=== PATIENT | female | born 2000 | race Caucasian/White ===

== ENCOUNTER 2022-10-05 15:23 | Outpatient (CLI) | payer OTHER, SELFPAY | END 2022-10-05 15:24 | disposition home or self-care (01) | LOC: FRMREF 15:25 | PROVIDERS: PCP Physician Assistant Medical; Visit Provider Physician Assistant Medical | DX: Z00.00 Encounter for general adult medical examination without abnormal findings (principal); Z01.818 Encounter for other preprocedural examination | CPT/HCPCS: 80053 ==

== ENCOUNTER 2024-06-07 10:43 | Outpatient (CLI) | payer OTHER, SELFPAY ==
[2024-06-07 14:46] LABS: Chlamydia DNA Amplified* NOT DETECTED (No Detected); GC DNA Amplified* NOT DETECTED (No Detected)
== END 2024-06-07 10:44 | disposition home or self-care (01) ==
PROVIDERS: PCP Physician Assistant Medical; Visit Provider Nurse Practitioner Family
DX: Z13.1 Encounter for screening for diabetes mellitus (principal); Z13.6 Encounter for screening for cardiovascular disorders; Z11.3 Encounter for screening for infections with a predominantly sexual mode of transmission
CPT/HCPCS: 80061; 87491; 87591

== ENCOUNTER 2024-07-25 16:45 | Outpatient (RCR) | payer OTHER, SELFPAY | END 2024-11-22 23:59 | disposition home or self-care (01) | PROVIDERS: PCP Physician Assistant Medical; Visit Provider Orthopaedic Surgery Sports Medicine | DX: M54.50 Low back pain, unspecified (principal); S76.011D Strain of muscle, fascia and tendon of right hip, subsequent encounter; S76.012D Strain of muscle, fascia and tendon of left hip, subsequent encounter; Z51.89 Encounter for other specified aftercare | CPT/HCPCS: 97110; 97140; 97161 ==

== ENCOUNTER 2025-01-16 14:17 | Outpatient (CLI) | payer OTHER, SELFPAY | END 2025-01-16 14:18 | disposition home or self-care (01) | LOC: LKVREF 14:18 | PROVIDERS: PCP Nurse Practitioner Family; Visit Provider Advanced Practice Midwife | DX: O20.9 Hemorrhage in early pregnancy, unspecified (principal) | CPT/HCPCS: 84702 ==

== ENCOUNTER 2025-01-18 08:11 | Outpatient (CLI) | payer OTHER, SELFPAY | END 2025-01-18 08:12 | disposition home or self-care (01) | PROVIDERS: PCP Nurse Practitioner Family; Referring Provider Nurse Practitioner Family; Visit Provider Advanced Practice Midwife | DX: O20.9 Hemorrhage in early pregnancy, unspecified (principal) | CPT/HCPCS: 84702 ==

== ENCOUNTER 2025-01-19 19:05 | Emergency (ER) | payer OTHER, SELFPAY ==
--- OUTSIDE RECORDS SUMMARY | 2025-01-08 11:00 | XMS_ITS | Encounter Summary ---
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 Diagnoses Encounter for supervision of normal first in first trimester Procedures US OB <14 Weeks w Transvaginal Single Juanjo Palomino MD [address] [place] [address] Phone: tel: fax: Referral ID Status Reason Start Date Expiration Date V isits Requested Visits Authorized [id number] Pending Review 01/08/2025 01/08/2026 1 1 Reason for Visit * Reason Comments Care Nurse intake phone c all Encounter Details Date Type Department Care Team (Late st Contact Info) Description 01/08/2025 11:00 AM CDT Virtual Visit [facility] [address] [place] [id number] Encounter for supervision of normal first in first trimester (Primary Dx) Social History Tobacco Use Types Packs/Day Years Used Date Smoking Tobacco: Never Passive Smoke Exposure: Never Smokeless Tobacco: Never Tobacco Cessation:Counseling Given: No Alcohol Use Standard Drinks/Week Comments Not Currently 0 (1 standard drink = 0.6 oz pur e alcohol) PHQ-2 Answer Date Recorded PHQ-2 Score 0 01/08/2025 Estimated Date of Delivery Comme nts Yes 08/27/2025 Based on last me nstrual period of 11/20/2024 (Exact Date) Sex and Gender Information Value Date Recorded Sex Assigned at Not on file 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 Learning About Your Care Instructions Your health in the early weeks of your is particularly important for your baby's health. Take good care of yourself. Anything you do that harms your body can also harm your baby. Make sure to go to all of your doctor appointments. Regular checkups will help keep you and your baby healthy. How can you care for yourself at home? Diet Choose healthy foods like fruits, vegetables, whole grains, lean proteins, and healthy fats. Choose foods that are good sources of calcium, iron, and folate. You can try dairy products, dark leafy greens, fortified orange juice and cereals, almonds, broccoli, dried fruit, and beans. Do not skip meals or go for many hours without eating. If you are nauseated, try to eat a small, healthy snack every 2 to 3 hours. Avoid fish that are high in mercury. These include shark, swordfish, estuardo mackerel, marlin, orange roughy, and bigeye tuna, as well as tilefish from the [place]. It's okay to eat up to 8 to 12 ounces a week of fish that are low in mercury or up to 4 ounces a week of fish that have medium levels of mercury. Some fish that are low in mercury are salmon, shrimp,canned light tuna, cod, and tilapia. Some fish that have medium levels of mercury are halibut and white albacore tuna. Drink plenty of fluids. If you have kidney, heart, or liver disease and have to limit fluids, talk with your doctor before you increase the amount of fluids you drink. Limit caffeine to about 200 to 300 mg per day. On average, a cup of brewed coffee has around 80 to 100 mg of caffeine. Do not drink alcohol, such as beer, wine, or hard liquor. Take a multivitamin that contains at least 400 micrograms (mcg) of folic acid to help prevent birthdefects. Fortified cereal and whole wheat bread are good additional sources of folic acid. Increase the calcium in your diet. Try to drink a quart of skim milk each day. You may also take calcium supplements and choose foods such as cheese and yogurt. Lifestyle Make sure you go to your follow-up appointments. Get plenty of rest. You may be unusually tired while you are . Get at least 30 minutes of exercise on most days of the week. Walking is a good choice. If you havenot exercised in the past, start out slowly. Take several short walks each day. Do not smoke. If you need help quitting, talk to your doctor about stop-smoking programs. These canincrease your chances of quitting for good. Do not touch cat feces or litter boxes. Also, wash your hands after you handle raw meat, and fully cook all meat before you eat it. Wear gloves when you work in the yard or garden, and wash your hands well when you are done. Cat feces, raw or undercooked meat, and contaminated dirt can cause an infection that may harm your baby or lead to a miscarriage. Avoid things that can make your body too hot and may be harmful to your baby, such as a hot tub or sauna. Or talk with your doctor before doing anything that raises your body temperature. Your doctorcan tell you if it's safe. Avoid chemical fumes, paint fumes, or poisons. Do not use illegal drugs, marijuana, or alcohol. Medicines Review all of your medicines with your doctor. Some of your routine medicines may need to be changed to protect your baby. Use acetaminophen (Tylenol) to relieve minor problems, such as a mild headache or backache or a mild fever with cold symptoms. Do not use nonsteroidal anti- inflammatory drugs (NSAIDs), such as ibuprofen (Advil, Motrin) or naproxen (Aleve), unless your doctor says it is okay. Do not take two or more pain medicines at the same time unless the doctor told you to. Many pain medicines have acetaminophen, which is Tylenol. Too much acetaminophen (Tylenol) can be harmful. Take your medicines exactly as prescribed. Call your doctor if you think you are having a problem with your medicine. To manage morning sickness Keep food in your stomach, but not too much at once. Try eating five or six small meals a day instead of three large meals. For nausea when you wake up, eat a small snack, such as a couple of crackers or pretzels, before rising. Allow a few minutes for your stomach to settle before you slowly get up. Try to avoid smells and foods that make you feel nauseated. High-fat or greasy foods, milk, and coffee may make nausea worse. Some foods that may be easier to tolerate include cold, spicy, sour, and salty foods. Drink enough fluids. Water and other caffeine-free drinks are good choices. Take your vitamins at night on a full stomach. Try foods and drinks made with kady. Kady may help with nausea. Get lots of rest. Morning sickness may be worse when you are tired. Talk to your doctor about orws-sbs-ddsdmnr products, such as vitamin B6 or doxylamine, to help relieve symptoms. Try a P6 acupressure wrist band. These anti-nausea wristbands help some people. Follow-up care is a chao part of your treatment and safety. Be sure to make and go to all appointments, and call your doctor if you are having problems. It's also a good idea to know your test resultsand keep a list of the medicines you take. Where can you learn more? Go to https://www.healthwise.net/patiented Enter E868 in the search box to learn more about Learning About . Current as of: October 04, 2023 Content Version: 14.5 ?? 7415-9658 [employer]. Care instructions adapted under license by your healthcare professional. If you have questions about a medical condition or this instruction, always ask your healthcare professional. [employer] disclaims any warranty or liability for your use of this information. Weeks 6 to 10 of Your : Care Instructions During these weeks of , your body goes through many changes. You may start to feel different, both in your body and your emotions. Each is different, so there's no right way to feel. These early weeks are a time to make healthy choices for you and your . Take a daily vitamin. Choose one with folic acid in it. Avoid alcohol, tobacco, and drugs (including marijuana). If you need help quitting, talk to your doctor. Drink plenty of liquids. Be sure to drink enough water. And limit sodas, other sweetened drinks, and caffeine. Choose foods that are good sources of calcium, iron, and folate. You can try dairy products, dark leafy greens, fortified orange juice and cereals, almonds, broccoli, dried fruit, and beans. Avoid foods that may be harmful. Don't eat raw meat, deli meat, raw seafood, or raw eggs. Avoid soft cheese and unpasteurized dairy, like Brie and blue cheese. And don't eat fish that contains a lot of mercury, like shark and swordfish. Don't touch ananda litter or cat poop. They can cause an infection that could be harmful during . Avoid things that can make your body too hot. For example, avoid hot tubs and saunas. Soothe morning sickness. Try eating 5 or 6 small meals a day, getting some fresh air, or using kady to control symptoms. Ask your doctor about flu and COVID-19 shots. Getting them can help protect against infection. Follow-up care is a chao part of your treatment and safety. Be sure to make and go to all appointments, and call your doctor if you are having problems. It's also a good idea to know your test resultsand keep a list of the medicines you take. Where can you learn more? Go to https://www.Story of My Life.net/patiented Enter G112 in the search box to learn more about Weeks 6 to 10 of Your : Care Instructions. Current as of: October 04, 2023 Content Version: 14.5 ?? [employer]. Care instructions adapted under license by your healthcare professional. If you have questions about a medical condition or this instruction, always ask your healthcare professional. [employer] disclaims any warranty or liability for your use of this information. : Managing Morning Sickness (01:48) Your health professional recommends that you watch this short online health video. Learn how to manage morning sickness during . Purpose: Learn how to manage morning sickness during . Goal: Learn how to manage morning sickness during . Watch: Scan the QR code or visit the link to view video https://hwi.[email or web address] Current as of: October 04, 2023 Content Version: 14.5 ?? [employer]. Care instructions adapted under license by your healthcare professional. If you have questions about a medical condition or this instruction, always ask your healthcare professional. [employer] disclaims any warranty or liability for your use of this information. and Heartburn: Care Instructions Overview Heartburn is a common problem during . Heartburn happens when stomach acid backs up into the tube that carries food to the stomach. This tube is called the esophagus. Early in , heartburn is caused by hormone changes that slow down digestion. Later on, it's also caused by the large uterus pushing up on the stomach. Even though you can't fix the cause, there are things you can do to get relief. Treating heartburn during focuses first on making lifestyle changes, like changing what and how you eat, and on taking medicines. Heartburn usually improves or goes away after childbirth. Follow-up care is a chao part of your treatment and safety. Be sure to make and go to all appointments, and call your doctor if you are having problems. It's also a good idea to know your test resultsand keep a list of the medicines you take. How can you care for yourself at home? Eat small, frequent meals. Avoid foods that make your symptoms worse, such as chocolate, peppermint, and spicy foods. Avoid drinks with caffeine, such as coffee, tea, and sodas. Avoid bending over or lying down after meals. Take a short walk after you eat. If heartburn is a problem at night, do not eat for 2 hours before bedtime. Take antacids like Mylanta, Maalox, Rolaids, or Tums. Do not take antacids that have sodium bicarbonate, magnesium trisilicate, or aspirin. Be careful when you take mgct-wuf-xyprmrc antacid medicines. Many of these medicines have aspirin in them. While you are , do not take aspirin or medicines that contain aspirin unless your doctor says it is okay. If you're not getting relief, talk to your doctor. You may be able to take a stronger acid-reducingmedicine. When should you call for help? Call your doctor now or seek immediate medical care if: You have new or worse belly pain. You are vomiting. Watch closely for changes in your health, and be sure to contact your doctor if: You have new or worse symptoms of reflux. You are losing weight. You have trouble or pain swallowing. You do not get better as expected. Where can you learn more? Go to https://www.Story of My Life.net/patiented Enter U946 in the search box to learn more about and Heartburn: Care Instructions. Current as of: October 04, 2023 Content Version: 14.5 ?? [employer]. Care instructions adapted under license by your healthcare professional. If you have questions about a medical condition or this instruction, always ask your healthcare professional. [employer] disclaims any warranty or liability for your use of this information. Constipation: Care Instructions Overview Constipation means that you have a hard time passing stools (bowel movements). People pass stools from 3 times a day to once every 3 days. What is normal for you may be different. Constipation may occur with pain in the rectum and cramping. The pain may get worse when you try to pass stools. Sometimes there are small amounts of bright red blood on toilet paper or the surface of stools. This is because of enlarged veins near the rectum (hemorrhoids). A few changes in your diet and lifestyle may help you avoid ongoing constipation. Your doctor may also prescribe medicine to help loosen your stool. Some medicines can cause constipation. These include pain medicines and antidepressants. Tell your doctor about all the medicines you take. Your doctor may want to make a medicine change to ease yoursymptoms. Follow-up care is a chao part of your treatment and safety. Be sure to make and go to all appointments, and call your doctor if you are having problems. It's also a good idea to know your test resultsand keep a list of the medicines you take. How can you care for yourself at home? Drink plenty of fluids. If you have kidney, heart, or liver disease and have to limit fluids, talk with your doctor before you increase the amount of fluids you drink. Include high-fiber foods in your diet each day. These include fruits, vegetables, beans, and whole grains. Get at least 30 minutes of exercise on most days of the week. Walking is a good choice. You also may want to do other activities, such as running, swimming, cycling, or playing tennis or team sports. Take a fiber supplement, such as Citrucel or Metamucil, every day. Read and follow all instructionson the label. Schedule time each day for a bowel movement. A daily routine may help. Take your time having a bowel movement, but don't sit for more than 10 minutes at a time. And don't strain too much. Support your feet with a small step stool when you sit on the toilet. This helps flex your hips andplaces your pelvis in a squatting position. Your doctor may recommend an wcor-ttm-btdswpr laxative to relieve your constipation. Examples are Milk of Magnesia and MiraLax. Read and follow all instructions on the label. Do not use laxatives on a long-term basis. When should you call for help? Call your doctor now or seek immediate medical care if: You have new or worse belly pain. You have new or worse nausea or vomiting. You have blood in your stools. Watch closely for changes in your health, and be sure to contact your doctor if: Your constipation is getting worse. You do not get better as expected. Where can you learn more? Go to https://www.Story of My Life.net/patiented Enter P343 in the search box to learn more about Constipation: Care Instructions. Current as of: March 24, 2024 Content Version: 14.5 ?? [facility] [employer]. Care instructions adapted under license by your healthcare professional. If you have questions about a medical condition or this instruction, always ask your healthcare professional. [employer] disclaims any warranty or liability for your use of this information. Learning About High-Iron Foods What foods are high in iron? The foods you eat contain nutrients, such as vitamins and minerals. Iron is a nutrient. Your body needs the right amount to stay healthy and work as it should. You can use the list below to help you make choices about which foods to eat. Here are some foods that contain iron. They have 1 to 2 milligrams of iron per serving. Fruits Figs (dried), 5 figs Vegetables Asparagus (canned), 6 gomez Ines, beet, [place] chard, or turnip greens, 1 cup Dried peas, cooked, ?? cup Seaweed, spirulina (dried), ?? cup Spinach, (cooked) ?? cup or (raw) 1 cup Grains Cereals, fortified with iron, 1 cup Grits (instant, cooked), fortified with iron, ?? cup Meats and other protein foods Beans (kidney, henriquez, navy, white), canned or cooked, ?? cup Beef or mnosalve, 3 oz Chicken giblets, 3 oz Chickpeas (garbanzo beans), ?? cup Liver of beef, monsalve, or pork, 3 oz Oysters (cooked), 3 oz Sardines (canned), 3 oz Soybeans (boiled), ?? cup Tofu (firm), ?? cup Work with your doctor to find out how much of this nutrient you need. Depending on your health, youmay need more or less of it in your diet. Where can you learn more? Go to https://www.Story of My Life.net/patiented Enter R005 in the search box to learn more about Learning About High-Iron Foods. Current as of: March 12, 2024 Content Version: 14.5 ?? [employer]. Care instructions adapted under license by your healthcare professional. If you have questions about a medical condition or this instruction, always ask your healthcare professional. [employer] disclaims any warranty or liability for your use of this information. Learning About Ultrasound Results What is a ultrasound? ultrasound is a test that lets your doctor see an image of your baby. Your doctor learns information about your baby from this picture. You may find out, for example, if you are having a boy ora girl. But the main reason you have this test is to get information about your baby's health. (You may hear your baby called a fetus. This is a common medical term for a baby that's growing in the mother's uterus.) What kind of information can you learn from this test? The findings of an ultrasound fall into two categories, normal and abnormal. Normal The fetus is the right size for its age. The placenta is the expected size and does not cover the cervix. There is enough amniotic fluid in the uterus. No defects can be seen. Abnormal The fetus is small or large for its age. The placenta covers the cervix. There is too much or too little amniotic fluid in the uterus. The fetus may have a defect. What does an abnormal result mean? Abnormal seems to imply that something is wrong with your baby. But what it means is that the test has shown something the doctor wants to take a closer look at. And that's what happens next. Your doctor will talk to you about what further test or tests you mayneed. What do the results mean? Some of the things your doctor may see on an abnormal ultrasound include: Echogenic bowel. The bowel looks very bright on the screen. This could mean that there's blood in the bowel. Or it could mean that something is blocking the small bowel. Increased nuchal translucency. The ultrasound measures the thickness at the back of the baby's neck. An increase in thickness is sometimes an early sign of Down syndrome. Increased or decreased amniotic fluid. The doctor will look for a reason for the level of amniotic fluid and will watch the closely as it progresses. Large ventricles. Ventricles in the brain look larger than they should. Your doctor may take a closer look at the brain. Renal pyelectasis/hydronephrosis. The ultrasound measures the fluid around the kidney. If there is more fluid than expected, there barrie chance of urinary tract or kidney problems. Short long bones. The ultrasound measures certain arm and leg bones. A long bone (humerus or femur) that is shorter than average could be a sign of Down syndrome. Subchorionic hemorrhage. An ultrasound can show bleeding under one of the membranes that surrounds the fetus. Some women don't have symptoms of bleeding. The ultrasound can find this problem when women are not bleeding from their vagina. Women who have this condition have a slightly higher chance of miscarriage. What do you do now? Take a deep breath, and let it out. Keep in mind that an abnormal finding on an ultrasound, after it's coupled with more information, may: youth services librarian to be nothing. youth services librarian to be something mild that won't affect the baby. youth services librarian to be something more serious. But if this happens, early diagnosis helps you and your doctor plan treatment options sooner rather than later. Your medical team is there for you. So are your family and friends. Ask questions, and get the helpand support you need. Follow-up care is a chao part of your treatment and safety. Be sure to make and go to all appointments, and call your doctor if you are having problems. It's also a good idea to know your test resultsand keep a list of the medicines you take. Where can you learn more? Go to https://www.Story of My Life.AvePoint/patiented Enter K451 in the search box to learn more about Learning About Ultrasound Results. Current as of: October 04, 2023 Content Version: 14.5 ?? 9828-5689 [employer]. Care instructions adapted under license by your healthcare professional. If you have questions about a medical condition or this instruction, always ask your healthcare professional. [employer] disclaims any warranty or liability for your use of this information. Learning About Visits Overview Regular visits are very important during any . These quick office visits may seemsimple and routine. But they can help you have a safe and healthy . Your doctor is watching for problems that can only be found through regular checkups. The visits also give you and your doctor time to build a good relationship. After your first visit, you will most likely start on a schedule of monthly visits. In your third trimester, the visits will get more frequent. Based on your health, your age, and if you've had a normal, full-term before, your doctor may want to see you more or less often. At different times in your , you will have exams and tests. Some are routine. Others are done only when there is a chance of a problem. Everything healthy you do for your body helps you havea healthy . Rest when you need it. Eat well, drink plenty of water, and exercise regularly. What happens during a visit? You will have blood pressure checks, along with urine tests. You also may have blood tests. If you need to go to the bathroom while waiting for the doctor, tell the nurse. You will be given a sample cup so your urine can be tested. You will be weighed and have your belly measured. Your doctor may listen to the heartbeat with a special device. At about 24 weeks, and possibly earlier in your , your doctor will check your blood sugar (glucose tolerance test) for diabetes that can occur during . This is gestational diabetes,which can be harmful. You will have tests to check for infections that could harm your . These include group B streptococcus and hepatitis B. Your doctor may do ultrasounds to check for problems. This also checks the position of the fetus. An ultrasound uses sound waves to produce a picture of the fetus. You may get your vaccines updated. Your doctor may ask you questions to check for signs of anxiety or depression. Tell your doctor if you feel sad, anxious, or hopeless for more than a few days. You may have other tests at any time during your . Use your visits to discuss with your doctor any concerns you have. How can you care for yourself at home? Get plenty of rest. Try to exercise every day, if your doctor says it is okay. If you have not exercised in the past, start out slowly. For example, you can take short walks each day. Choose healthy foods, such as fruits, vegetables, whole grains, lean proteins, low-fat dairy, and healthy fats. Drink plenty of fluids. Cut down on drinks with caffeine, such as coffee, tea, and cola. If you have kidney, heart, or liver disease and have to limit fluids, talk with your doctor before you increase the amount of fluids you drink. Try to avoid chemical fumes, paint fumes, and poisons. If you smoke, vape, or use alcohol, marijuana, or other drugs, quit or cut back as much as you can.Talk to your doctor if you need help quitting. Review all of your medicines, including [id number] medicines and supplements, with your doctor. Some of your routine medicines may need to be changed. Do not stop or start taking any medicines without talking to your doctor first. Follow-up care is a chao part of your treatment and safety. Be sure to make and go to all appointments, and call your doctor if you are having problems. It's also a good idea to know your test resultsand keep a list of the medicines you take. Where can you learn more? Go to https://www.Story of My Life.net/patiented Enter J502 in the search box to learn more about Learning About Visits. Current as of: October 04, 2023 Content Version: 14.5 ?? 5897-0648 [employer]. Care instructions adapted under license by your healthcare professional. If you have questions about a medical condition or this instruction, always ask your healthcare professional. [employer] disclaims any warranty or liability for your use of this information. Intimate Partner Violence: Care Instructions Overview If you want to save this information but don't think it is safe to take it home, see if a trusted friend can keep it for you. Plan ahead. Know who you can call for help, and memorize the phone number. Be careful online too. Your online activity may be seen by others. Do not use your personal computer or device to read about this topic. Use a safe computer, such as one at work, a friend's home, or a library. Intimate partner violence--a type of domestic abuse--is different from an argument now and then. Itis a pattern of abuse that one person may use to control another person's behavior. It may start with threats and name-calling. Then, it may lead to more serious acts, like pushing and slapping. The abuse also may occur in other areas. For example, the abuser may withhold money or spend a partner'smoney without their knowledge. Abuse can cause serious harm. You are more likely to have a long-term health problem from the injuries and stress of living in a violent relationship. People who are sexually abused by their partnershave more sexually transmitted infections and unplanned pregnancies. Anyone who is abused also faces emotional pain. Anyone can be abused in relationships. In some relationships, both people use abusive behavior. If you are , abuse can cause problems such as poor weight gain, infections, and bleeding. Abuse during this time may increase your baby's risk of low weight, premature , and . Follow-up care is a chao part of your treatment and safety. Be sure to make and go to all appointments, and call your doctor if you are having problems. It's also a good idea to know your test resultsand keep a list of the medicines you take. How can you care for yourself at home? If you do not have a safe place to stay, discuss this with your doctor before you leave. Have a plan for where to go, how to leave your home, and where to stay in case of an emergency. Do not tell your partner about your plan. Contact: The National Domestic Violence Hotline toll-free at . They can help you find resources in your area. Your local police department, hospital, or clinic for information about shelters and safe homes near you. Talk to a trusted friend or neighbor, a counselor, or a ramona leader. Do not feel that you have to hide what happened. Teach your children how to call for help in an emergency. Be alert to warning signs, such as threats, heavy alcohol use, or drug use. This can help you avoiddanger. If you can, make sure that there are no guns or other weapons in your home. When should you call for help? Call 911 anytime you think you may need emergency care. For example, call if: You or someone else has just been abused. You think you or someone else is in danger of being abused. Watch closely for changes in your health, and be sure to contact your doctor if you have any problems. Where can you learn more? Go to https://www.Story of My Life.net/patiented Enter G282 in the search box to learn more about Intimate Partner Violence: Care Instructions. Current as of: January 04, 2024 Content Version: 14.5 ?? NewRiver. Care instructions adapted under license by your healthcare professional. If you have questions about a medical condition or this instruction, always ask your healthcare professional. [employer] disclaims any warranty or liability for your use of this information. Vaginal Bleeding During : Care Instructions Overview It's common to have some vaginal spotting when you are . In some cases, the bleeding isn't serious. And there aren't any more problems with the . But sometimes bleeding is a sign of a more serious problem. This is more common if the bleeding is heavy or painful. Examples of more serious problems include miscarriage, an ectopic , and aproblem with the placenta. You may have to see your doctor again to be sure everything is okay. You may also need more tests to find the cause of the bleeding. Home treatment may be all you need. But it depends on what is causing the bleeding. Be sure to tellyour doctor if you have any new symptoms or if your symptoms get worse. The doctor has checked you carefully, but problems can develop later. If you notice any problems ornew symptoms, get medical treatment right away. Follow-up care is a chao part of your treatment and safety. Be sure to make and go to all appointments, and call your doctor if you are having problems. It's also a good idea to know your test resultsand keep a list of the medicines you take. How can you care for yourself at home? If your doctor prescribed medicines, take them exactly as directed. Call your doctor if you think you are having a problem with your medicine. Do not have vaginal sex until your doctor says it's okay. Do not put anything in your vagina until your doctor says it's okay. Ask your doctor about other activities you can or can't do. Get a lot of rest. Being can make you tired. Do not use nonsteroidal anti-inflammatory drugs (NSAIDs), such as ibuprofen (Advil, Motrin), naproxen (Aleve), or aspirin, unless your doctor says it is okay. When should you call for help? Call 911 anytime you think you may need emergency care. For example, call if: You passed out (lost consciousness). You have severe vaginal bleeding. This means you are soaking through a pad each hour for 2 or more hours. You have sudden, severe pain in your belly or pelvis. Call your doctor now or seek immediate medical care if: You have new or worse vaginal bleeding. You are dizzy or lightheaded, or you feel like you may faint. You have pain in your belly, pelvis, or lower back. You think that you are in labor. You have a sudden release of fluid from your vagina. You've been having regular contractions for an hour. This means that you've had at least 8 contractions within 1 hour or at least 4 contractions within 20 minutes, even after you change your positionand drink fluids. You notice that your baby has stopped moving or is moving much less than normal. Watch closely for changes in your health, and be sure to contact your doctor if you have any problems. Current as of: October 04, 2023 Content Version: 14.5 ?? [id number] [employer]. Care instructions adapted under license by your healthcare professional. If you have questions about a medical condition or this instruction, always ask your healthcare professional. [employer] disclaims any warranty or liability for your use of this information. documented in this encounter Progress Notes * Nikky Mckeon RN - 01/08/2025 11:00 AM CDT NPN nurse visit done over the phone. Pt will be given NPN folder and book at her upcoming appt. Discussed optional screening available to assess chromosomal anomalies. Questions answered. Informed pt of the clinic structure (on-call does deliveries for the day, may be male or female doctor). Ptadvised to call the clinic if she has any questions or concerns related to her . labs will be obtained at her upcoming appt. New visit scheduled on 01/30/[address] Palomino. 7w0d Pt checked with PCP regarding Adderall. Will continue to take during . Menstrual cycles: regular cycles every 27 days Date of positive test: 12/16/24 Medications stopped upon pos HPT: none Last pap: 10/05/22 NILM Patient supplied answers from flow sheet for: OB Questionnaire. Past Medical History Have you ever recieved care for your mental health? : (!) Yes (hx of anxiety) Have you ever been in a major accident or suffered serious trauma?: No Within the last year, has anyone hit, slapped, kicked or otherwise hurt you?: No In the last year, has anyone forced you to have sex when you didn't want to?: No Past Medical History 2 Have you ever received a blood transfusion?: No Would you accept a blood transfusion if was medically recommended?: Yes Does anyone in your home smoke?: No Is your blood type Rh negative?: Unknown Have you ever breastfed?: No Have you been hospitalized for a nonsurgical reason excluding normal delivery?: No Have you ever had an abnormal pap smear?: No Past Medical History (Continued) Do you have a history of abnormalities of the uterus?: No Did your mother take GUS or any other hormones when she was with you?: Unknown Do you have any other problems we have not asked about which you feel may be important to this ?: No Nikky Marie RN REGULATORY ADMINISTRATOR [place] documented in this encounter Plan of Treatment Upcoming Encounters Date Type Department Care Team (Late st Contact Info) Description 01/30/2025 8:00 AM CDT Office Visit [facility] [address] [place] [id number] Juanjo Palomino MD [address] [place] [address] documented as of this encounter Results * Hepatitis C antibody (01/15/2025 9:56 AM CDT) [facility] Hepatitis C Antibody Nonreactive Nonreactive 01/15/2025 7:08 PM CDT LABORATORY Comment: A nonreactive screening test result does not exclude the possibility of exposure to or infection with HCV. Nonreactive screening test results in individuals with prior exposure to HCV may be due to antibody levels below the limit of detection of this assay or lack of reactivity to the HCV antigens used in this assay. Patients with recent HCV infections (<3 months from time of exposure) may have false-negative HCV antibody results due to the time needed for seroconversion (average of 8 to 9 weeks). Assay performance characteristics have not been established in populations of immunocompromised or immunosuppressed patients. Blood BLOOD SPECIMEN / Unknown Venipuncture / Unknown 01/15/2025 9:56 AM CDT 01/15/2025 9:56 AM CDT us Juanjo Palomino MD LAB - BLOOD ORDERABLES Final Result U LABORATORY [facility] [address] [facility] [address], [address] [place] [address], [facility] * Hemoglobin A1c (01/15/2025 9:56 AM CDT) Estimated Average Glucose 105 <117 mg/dL 01/15/2025 10:05 AM CDT [facility] LAB[facility]ORY Hemoglobin A1C 5.3 0.0 - 5.6 % 01/15/2025 10:05 AM CDT [facility] LABORATORY Comment: Normal <5.7% Prediabetes 5.7-6.4% Diabetes 6.5% or higher Note: Adopted from ADA consensus guidelines. Blood BLOOD SPECIMEN / Unknown Venipuncture / Unknown 01/15/2025 9:56 AM CDT 01/15/2025 9:56 AM CDT Juanjo Palomino MD LAB - BLOOD ORDERABLES Final Result LABORATORY [facility] Lab [address] Lab (no room number, 1st floor of clinic) [place] [address], [facility] * Treponema Abs w Reflex to RPR and Titer (01/15/2025 9:56 AM CDT) Pathologist [facility] Treponema Antibody Total Nonreactive Nonreactive 01/15/2025 5:20 PM CDT SPECIALTY LABS Blood BLOOD SPECIMEN / Unknown Venipuncture / Unknown 01/15/2025 9:56 AM CDT 01/15/2025 9:56 AM CDT Juanjo Palomino MD LAB - BLOOD ORDERABLES Final Result [facility] SPECIALTY CORE/PROT/ENDO [facility] Special[facility] Core/Prot/Endo [address] [facility] [address], [address] [place] [address], [place] SPECIAL[facility] LAB[facility] Specialty Lab [address] [facility] [address] [facility], [address] [place] [address], [place] * Rubella Antibody IgG (01/15/2025 9:56 AM CDT) Pathologist [facility] Rubella Eve IgG Instrument Value 0.70 <0.90 Index 01/15/2025 5:16 PM CDT SPECIALTY CORE/PROT/EN DO Rubella Antibody IgG No detectable antibody. 01/15/2025 5:16 PM CDT SPECIALTY LABS Blood BLOOD SPECIMEN / Unknown Venipuncture / Unknown 01/15/2025 9:56 AM CDT 01/15/2025 9:56 AM CDT Juanjo Palomino MD LAB - BLOOD ORDERABLES Final Result SPECIALTY CORE/PROT/ENDO [facility] Core/Prot/Endo [address] [facility], [address] SPECIALTY LABS Specialty Lab [address] [facility], [address] [id number] * HIV Antigen Antibody Combo (01/15/2025 9:56 AM CDT) [facility] HIV Antigen Antibody Combo Nonreactive Nonreactive 01/15/2025 6:29 PM CDT U LABORATORY Comment:Negative HIV-1 p24 a ntigen and HIV-1/2 antibody screening test results usually indicate the absence of HIV-1 and HIV-2 infection. However, such negative results do not rule-out acute HIV infection. If acute HIV-1 or HIV-2 infection is suspected, detection of HIV-1 or HIV-2 RNA is recommended. This result is obtained using the Renee Ele[employer]ys HIV Duo method on the slava e801 immunoassay analyzer. Blood BLOOD SPECIMEN / Unknown Venipuncture / Unknown 01/15/2025 9:56 AM CDT 01/15/2025 9:56 AM CDT Juanjo Palomino MD LAB - BLOOD ORDERABLES Final Result U LABORATORY [facility] [address] [facility], [address] [id number] * CBC with platelets (01/15/2025 9:56 AM CDT) WBC Count 7.8 4.0 - 11.0 10e3/uL 01/15/2025 10:03 AM CDT OX LABORATORY RBC Count 4.70 3.80 - 5.20 10e6/uL 01/15/2025 10:03 AM CDT [facility]X LABORATORY Hemoglobin 13.3 11.7 - 15.7 g/dL 01/15/2025 10:03 AM CDT [facility] LABORATORY Hematocrit 37.8 35.0 - 47.0 % 01/15/2025 10:03 AM CDT [facility] LABORATORY MCV 80 78 - 100 fL 01/15/2025 10:03 AM CDT [facility] LABORATORY MCH 28.3 26.5 - 33.0 pg 01/15/2025 10:03 AM CDT [facility] LABORATORY MCHC 35.2 31.5 - 36.5 g/dL 01/15/2025 10:03 AM CDT [facility]X LABORATORY RDW 11.5 10.0 - 15.0 % 01/15/2025 10:03 AM CDT [facility]X LABORATORY Platelet Count 246 150 - 450 10e3/uL 01/15/2025 10:03 AM CDT OX LABORATORY Blood BLOOD SPECIMEN / Unknown Venipuncture / Unknown 01/15/2025 9:56 AM CDT 01/15/2025 9:56 AM CDT us Juanjo Palomino MD LAB - BLOOD ORDERABLES Final Result LABORATORY [facility] [address] Lab (no room number, 1st floor of clinic) [place] [address], [facility] * Hepatitis B surface antigen (01/15/2025 9:56 AM CDT) Pathologist [facility] Hepatitis B Surface Antigen Nonreactive Nonreactive 01/15/2025 7:08 PM CDT U[facility] LABORATORY Comment: Assay performance characteristics have not been established for testing of newborns. Blood BLOOD SPECIMEN / Unknown Venipuncture / Unknown 01/15/2025 9:56 AM CDT 01/15/2025 9:56 AM CDT us Juanjo Palomino MD LAB - BLOOD ORDERABLES Final Result [facility] LAB[facility]AT[facility] [address] [facility] [address], [address] [place] [address], [facility] * US OB <14 Weeks w Transvaginal Single (01/15/2025 9:52 AM CDT) Anatomical Region Laterality Modality Abdomen/Pelvis Ultrasound Impressions 01/15/2025 8:37 PM CDT LMP: 20 Nov 2024 - sure EDC: 27 Aug 2025 EGA: 8 w 0 d MEASUREMENTS Gest Sac: vis MSD: 1.29 cm Position:nl Contour:smooth/regular. Yolk sac: 2.5 mm wnl CRL: 1.33 cm. EGA: 7w 4d U/S EDC: 30 Aug 2025 correspond Cardiac Activity:Yes 164 bpm Rt Ov L: 2.2 x 2.6 x 1.8 cm Wnl Lt Ov L: 3.1 x 2.7 x 2.5 cm Complex cyst 2.3 x 1.8 x 2.1 cm Cul de sac: no free fluid *Other Findings: Technique: Transvaginal Imaging performed Transabdominal Imaging performed Impression: Single intrauterine with cardiac activity. Corresponding sonographic and menstrual EGA and EDC. Based on this, best EDC for this is Aug 27, 2025. Corpus luteum seen. Corpus luteal cysts are normal in and generally do not require follow up, but clinical correlation is suggested. Small gestational sac; of unknown clinical significance. Normal early OB ultrasound. Cecilia Omalley MD Note: federal law requires the release of results to patients even prior to the ordering provider viewing the result. Your provider will notify you, generally within 24 hours, of any critical results. If follow up is necessary, you will be notified at that time. Normal results, and abnormal but non-urgent results, will generally be addressed within 48-72 hours. Narrative 01/15/2025 8:37 PM CDT [facility] ULTRASOUND - OB < 14 Weeks- Transabdominal and Transvaginal Referring Provider: Juanjo Palomino MD INDICATIONS FOR ULTRASOUND: OB History: Present Conditions: Bleeding in 1st trimester Initial S&D (0-17 weeks) CLINICAL INFORMATION us Juanjo Palomino MD IMG US ORDERABLES Emilee l Result * Urine Culture Aerobic Bacterial (01/15/2025 9:46 AM CDT) Culture <10,000 CFU/mL Mixture of urogenital chaya 01/16/2025 11:30 AM CDT [facility] LABORATORY Urine MID-STREAM URINE SPECIMEN / Unknown Non-blood Collection / Unknown 01/15/2025 9:46 AM CDT 01/15/2025 9:46 AM CDT us Juanjo Palomino MD LAB - MICRO GENERAL OR DERABLES Final Result [facility] LAB[facility]AT[facility] Inf. Diseases Diag. Lab [address] [facility], [address] [place] [id number] documented in this encounter Visit Diagnoses Diagnosis Encounter for supervision of normal first in first trimester- Primary Supervision of normal first Encounter for supervision of normal first in first trimester Supervision of normal first documented in this encounter Care Teams Medical Instrument Cable Fabricator Relationship Specialty Start Date End Date [facility]- [address] [place] [address] PCP - General 12/28/24 Juanjo Palomino MD [address] [place] [address] velvet cutter 12/28/24 documented as of this encounter
--- OUTSIDE RECORDS SUMMARY | 2025-01-15 09:40 | XMS_ITS | Encounter Summary ---
Author Organization [place] Address [address] [place] [address]. [place] [address] Care Team Providers Care Carburetor Rebuilder Name Role Phone [facility]- Primary Care Provider Juanjo Palomino MD Unavailable [phone] Reason for Visit * Diagnostic Imaging Ultrasound (Routine) - Pending Review Specialty Diagnoses / Procedures Referred By Contac t Referred To Contact Radiology. Diagnoses Encounter for supervision of normal first in first trimester Procedures US OB <14 Weeks w Transvaginal Single Juanjo Palomino MD [address] [place] [address] Phone: tel: fax: Referral ID Status Reason Start Date Expiration Date V isits Requested Visits Authorized [id number] Pending Review 01/08/2025 01/08/2026 1 1 Encounter Details Date Type Department Care Team (Latest Contact Info) Description 01/15/2025 9:40 AM CDT Ancillary Procedure [address] [address] Encounter for supervision of normal first in first trimester Social History Tobacco Use Types Packs/Day Years Used Date Smoking Tobacco: Never Passive Smoke Exposure: Never Smokeless Tobacco: Never Alcohol Use Standard Drinks/Week Comments Not Currently 0 (1 standard drink = 0.6 oz pur e alcohol) PHQ-2 Answer Date Recorded PHQ-2 Score 0 01/08/2025 Estimated Date of Delivery Comme nts Yes 08/27/2025 Based on last me nstrual period of 11/20/2024 (Exact Date) Sex and Gender Information Value Date Recorded Sex Assigned at Not on file Legal Sex Female 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 CODER Gender Identity Not on file Sexual Orientation Not on file documented as of this encounter Plan of Treatment Upcoming Encounters Date Type Department Care Team (Late st Contact Info) Description 01/30/2025 8:00 AM CDT Office Visit [facility] [address] [place] [address] Juanjo Palomino MD [address] [place] [address] documented as of this encounter Procedures Procedure Name Priority Date/Time Associated Diagnosis Comments US OB <14 WEEKS WITH TRANSVAGINAL SINGLE Routine 01/15/2025 9:52 AM CDT Encounter for supervision of normal first in first trimester documented in this encounter Results * US OB <14 Weeks w Transvaginal [...] 48-72 hours. Narrative 01/15/2025 8:37 PM CDT [facility] ULTRASOUND - OB < 14 Weeks- Transabdominal and Transvaginal Referring Provider: Juanjo Palomino MD INDICATIONS FOR ULTRASOUND: OB History: Present Conditions: Bleeding in 1st trimester Initial S&D (0-17 weeks) CLINICAL INFORMATION us Juanjo Palomino MD IMG US ORDERABLES Emilee l Result documented in this encounter Visit Diagnoses Diagnosis Encounter for supervision of normal first in first trimester Supervision of normal first documented in this encounter Care Teams Carburetor Rebuilder Relationship Specialty Start Date End Date [facility]- [address] [place] [address] PCP - General 12/28/24 Juanjo Palomino MD [address] [place] [address] insulation board back tender 12/28/24 documented as of this encounter
--- OUTSIDE RECORDS SUMMARY | 2025-01-15 10:15 | XMS_ITS | Encounter Summary ---
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 Gender Identity Not on file Sexual Orientation Not on file documented as of this encounter Plan of Treatment Upcoming Encounters Date Type Department Care Team (Late st Contact Info) Description 01/30/2025 8:00 AM CDT Office Visit [facility] Women's [address] [place] [phone] Juanjo Palomino MD [address] [place] [address] documented as of this encounter Procedures Procedure Name Priority Date/Time Associated Diagnosis Comments TYPE AND SCREEN, ADULT Routine 01/15/2025 9:56 AM CDT Encounter for supervision of normal first in first trimester RUBELLA ANTIBODY IGG Routine 01/15/2025 9:56 AM CDT Encounter for supervision of normal first in first trimester HIV ANTIGEN ANTIBODY COMBO Routine 01/15/2025 9:56 AM CDT Encounter for supervision of normal first in first trimester TREPONEMA ABS W REFLEX TO RPR AND TITER Routine 01/15/2025 9:56 AM CDT Encounter for supervision of normal first in first trimester HEPATITIS C ANTIBODY Routine 01/15/2025 9:56 AM CDT Encounter for supervision of normal first in first trimester HEPATITIS B SURFACE ANTIGEN Routine 01/15/2025 9:56 AM CDT Encounter for supervision of normal first in first trimester HEMOGLOBIN A1C Routine 01/15/2025 9:56 AM CDT Encounter for supervision of normal first in first trimester ABO/RH TYPE AND SCREEN Routine 01/15/2025 9:56 AM CDT Encounter for supervision of normal first in first trimester CBC WITH PLATELETS Routine 01/15/2025 9: 56 AM CDT Encounter for supervision of normal first in first trimester URINE CULTURE Routine 01/15/2025 9:46 AM CDT Encounter for supervision of normal first in first trimester documented in this encounter Results * Adult Type and Screen (01/15/2025 9:56 AM CDT) ABO/RH(D) O POS 01/14/2025 7:00 PM CDT BLOOD BANK Antibody Screen Negative Negative 01/14/2025 7:00 PM CDT BLOOD BANK SPECIMEN EXPIRATION DATE 01/18/2025 11:59:00 PM CDT 01/14/2025 7:00 PM CDT BLOOD BANK Blood BLOOD SPECIMEN / Unknown Venipuncture / Unknown 01/15/2025 9:56 AM CDT 01/15/2025 9:56 AM CDT Juanjo Palomino MD LAB - BLOOD BANK TEST ORDER Final Result BLOOD BANK [address] [place] [address] * Hepatitis C antibody (01/15/2025 9:56 AM CDT) [facility] Hepatitis C Antibody Nonreactive Nonreactive 01/15/2025 7:08 [...] LAB - BLOOD ORDERABLES Final Result LABORATORY [facility] [address] [facility], [address] [place] [address], [facility] * Hemoglobin A1c (01/15/2025 9:56 AM CDT) [facility] Estimated Average Glucose 105 <117 mg/dL 01/15/2025 [...] LAB - BLOOD ORDERABLES Final Result LABORATORY [facility] [address] Lab (no room number, 1st floor of clinic) [place] [address], [facility] * Treponema Abs w Reflex to RPR and Titer (01/15/2025 9:56 AM CDT) Treponema Antibody Total Nonreactive Nonreactive 01/15/2025 5:20 PM CDT SPECIALTY LABS Blood BLOOD SPECIMEN / Unknown Venipuncture / Unknown 01/15/2025 9:56 AM CDT 01/15/2025 9:56 AM CDT Juanjo Palomino MD LAB - BLOOD ORDERABLES Final Result SPECIALTY CORE/PROT/ENDO Specialty Core/Prot/Endo [address] [facility] [address], [address] [place] [address], [facility] SPECIALTY LABS Specialty Lab [address] [facility] [address], [address] [place] [address], [place] * Rubella Antibody IgG (01/15/2025 9:56 AM CDT) Rubella Eve IgG Instrument Value 0.70 <0.90 Index 01/15/2025 5:16 PM CDT SPECIALTY CORE/PROT/EN DO Rubella Antibody IgG No detectable antibody. 01/15/2025 5:16 PM CDT SPECIAL[facility] LABS Blood BLOOD SPECIMEN / Unknown Venipuncture / Unknown 01/15/2025 9:56 AM CDT 01/15/2025 9:56 AM CDT Juanjo Palomino MD LAB - BLOOD ORDERABLES Final Result SPECIALTY CORE/PROT/ENDO [facility] Specialty Core/Prot/Endo [address] [facility] [address], [id number] [place] [address] SPECIALTY LABS [facility] Specialty Lab 500 [facility] Building, Room [address] [address] * HIV Antigen Antibody Combo (01/15/2025 9:56 AM CDT) [facility] HIV Antigen Antibody Combo Nonreactive Nonreactive 01/15/2025 [...] - BLOOD ORDERABLES Final Result [facility] LABORATORY [facility] [address] [facility] [address] Building, [address] [address] * CBC with platelets (01/15/2025 9:56 AM CDT) [facility] WBC Count 7.8 4.0 - 11.0 10e3/uL [...] MD LAB - BLOOD ORDERABLES Final Result OX LABORATORY [facility] [address] Lab (no room number, 1st floor of clinic) [place] [address], [facility] * Hepatitis B surface antigen (01/15/2025 9:56 AM CDT) [facility] Hepatitis B Surface Antigen Nonreactive Nonreactive 01/15/2025 7:08 PM CDT [facility] LAB[facility]ATORY Comment: Assay performance characteristics have not been established for testing of newborns. Blood BLOOD SPECIMEN / Unknown Venipuncture / Unknown 01/15/2025 9:56 AM CDT 01/15/2025 9:56 AM CDT Juanjo Palomino MD LAB - BLOOD ORDERABLES Final Result [facility] LABORATORY [facility] [address] [facility], [address] [place] [address] * Urine Culture Aerobic Bacterial (01/15/2025 9:46 AM CDT) Culture <10,000 CFU/mL Mixture of urogenital chaya 01/16/2025 11:30 AM CDT [facility] ID[facility] LABORATORY Urine MID-STREAM URINE SPECIMEN / Unknown Non-blood Collection / Unknown 01/15/2025 9:46 AM CDT 01/15/2025 9:46 AM CDT us Juanjo Palomino MD LAB - MICRO GENERAL OR DERABLES Final Result [facility] LABORATORY [facility] Inf. Diseases Diag. Lab [address] [facility], [address] [place] [address], [facility] documented in this encounter Visit Diagnoses Diagnosis Encounter for supervision of normal first in first trimester Supervision of normal first documented in this encounter Care Teams As400 Administrator Relationship Specialty Start Date End Date [facility]- [address] [place] [address] PCP - General 12/28/24 Juanjo Palomino MD [address] [place] [address] riverboat captain 12/28/24 documented as of this encounter
--- OUTSIDE RECORDS SUMMARY | 2025-01-19 19:07 | XMS_ITS | Clinical Summary ---
Author Organization [facility] Address [address] [place] [address] Care Team Providers Care Photovoltaic Solar Cell Designer Name Role Phone Unavailable Primary Care Provider Unavailabl e Source Comments PLEASE NOTE, if this patient is a minor, it may be UNLAWFUL to discuss sensitive information that is contained in these records (such as FAMILY PLANNING, MENTAL HEALTH or SUBSTANCE ABUSE) with the minor patient's parent or other person without the patient's specific authorization.[facility] Social History Tobacco Use Types Packs/Day Years Used Date Smoking Tobacco: Never Smokeless Tobacco: Current Chew Social Connections Answer Date Recorded Social Connections and Isolation 0 02/14/2020 Financial Resource Strain Answer Date R ecorded Financial Resource Strain 0 2019 Stress Answer Date Recorded Stress 0 02/14/2020 Physical Activity Answer Date Recorded Physical Activity 0 02/14/2020 Food Insecurity Answer Date Recorded Food 0 02/14/2020 Transportation Needs Answer Date Record ed Transportation 0 02/14/2020 Housing Stability Answer Date Recorded Housing 0 02/14/2020 Safety and Environment Answer Date Juan rded Safety 0 02/14/2020 Utilities Answer Date Recorded Utilities 0 02/14/2020 Employment Answer Date Recorded Employment 0 02/14/2020 Comments Unknown Sex and Gender Information Value Date Recorded Sex Assigned at Not on file Legal Sex Female 12:49 PM PDT Gender Identity Female 06/04/2020 8:30 AM PST Sexual Orientation Straight 06/04/2020 8: 30 AM PST Plan of Treatment Not on file Insurance [employer]
--- OUTSIDE RECORDS SUMMARY | 2025-01-19 19:08 | XMS_ITS | Encounter Summary ---
Author Organization [place] Address [address] [place] [address] Care Team Providers Care Extension Service Specialist In Charge Name Role Phone [facility]- Primary Care Provider Juanjo Palomino MD Unavailable Reason for Visit * Reason Onset Date Comments Care 01/14/2025 Encounter Details Date Type Department Care Team (Late st Contact Info) Description 01/14/2025 Telephone [facility] [address] [facility] [address] [place] [address] Juanjo Palomino MD [address] [place] [address] Care Social History Tobacco Use Types Packs/Day Years [...] on file 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 Today calls with some increase rob/red bleeding. Only when wiping. Cramping has stopped. No U/s appts today. We moved up appt for tomorrow. Kori Borden DIRECTOR SURGICAL Jud civil service clerk documented in this encounter Plan of Treatment Upcoming Encounters Date Type Department Care Team (Late st Contact Info) Description 01/30/2025 8:00 AM CDT Office Visit [facility] [address] [place] [address] Juanjo Palomino MD [address] [place] [address] documented as of this encounter Visit Diagnoses Not on filedocumented in this encounter Care Teams Extension Service Specialist In Charge Relationship Specialty Start Date End Date [facility]- [address] [place] [address] PCP - General 12/28/24 Juanjo Palomino MD [address] [place] [address] bowling ball assembler 12/28/24 documented as of this encounter
--- OUTSIDE RECORDS SUMMARY | 2025-01-19 19:08 | XMS_ITS | Encounter Summary ---
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 Gender Identity Not on file Sexual Orientation Not on file documented as of this encounter Plan of Treatment Upcoming Encounters Date Type Department Care Team (Late st Contact Info) Description 01/30/2025 8:00 AM CDT Office Visit [facility] [address] [place] [phone] Juanjo Palomino MD [address] [place] [address] documented as of this encounter Visit Diagnoses Not on filedocumented in this encounter Care Teams Construction Carpenters Helper Relationship Specialty Start Date End Date [facility]- [address] [place] [address] PCP - General 12/28/24 Juanjo Palomino MD [address] [place] [address] molder machine 12/28/24 documented as of this encounter
--- OUTSIDE RECORDS SUMMARY | 2025-01-19 19:08 | XMS_ITS | Clinical Summary ---
Author Organization [facility] Address [facility] [place] [address] Care Team Providers Care Sports Book Board Attendant Name Role Phone Sid Rodriguez PA-C Primary Care Provider [phone] Allergies No known active allergies Medications Tri Femynor 0.18/0.215/0.2 5 mg-35 mcg (28) tablet PLEASE SEE ATTACHED FOR DETAILED DIRECTIONS 1 Active acetaminophen (TYLENOL) 325 mg tabletIndicati ons:Sore throat,Strep pharyngitis,Fe thierry in other diseases Take 2 Tablets (650 mg) by mouth every 6 hours. Max acetaminophen dose: 4000mg in 24 hrs. 52 Tablet 3 Active Social History Tobacco Use Types Packs/Day Years Used Date Smoking Tobacco: Never Smokeless Tobacco: Never Tobacco Cessation:Counseling Given: No Alcohol Use Standard Drinks/Week Comments Never 0 (1 standard drink = 0.6 oz pur e alcohol) Comments Unknown Sex and Gender Information Value Date Recorded Sex Assigned at Not on file Legal Sex Female 3:22 PM CDT Gender Identity Not on file Sexual Orientation Not on file Obstetrics History Last Filed Vital Signs Vital Sign Reading Time Taken Comments Blood Pressure 129/83 04/14/2023 2:04 PM IT PROJECT COORDINATOR Pulse 109 04/14/2023 2:04 PM IT PROJECT COORDINATOR Temperature 38.2 C (100.7 F) 04/14/2023 2:04 PM IT PROJECT COORDINATOR Respiratory Rate 19 04/14/2023 2:04 PM IT PROJECT COORDINATOR Oxygen Saturation 99% 04/14/2023 2:04 PM IT PROJECT COORDINATOR Inhaled Oxygen Concentration - - Weight 99.8 kg (220 lb) 04/14/2023 2:04 PM IT PROJECT COORDINATOR Height 165.1 cm (5' 5) 02/09/2021 4:58 PM CDT Body Mass Index 36.61 02/09/2021 4:58 PM CDT Plan of Treatment Health Maintenance Due Date Last Done Comments Tetanus booster 12/24/2010 Depression screening for age 12+ 2011 HIV for age 15-65 12/24/2014 HPV series for age 9-26 (1 - 3-dose series) 12/24/2014 BMI (ht and wt on same day) for age 18+ 12/24/2017 Hepatitis C screening for ag e 18-79 12/24/2017 Hepatitis B series for 19+ ( 1 of 3 - 19+ 3-dose series) 12/24/2018 COVID-19 vaccine series ( season) 2024 Influenza Vaccine (#1) 2025 Pap test for age 21-65 10/05/2025 10/05/2022 Pneumococcal series for age 6-49 Aged Out No longer eligible based on patient's age to complete this topic Procedures Procedure Name Priority Date/Time Associated Diagnosis Comments EMPLOYEE RELATIONS REPRESENTATIVE THIN PREP PAP SCREEN IMAGED Routine 10/05/2022 3:15 PM CDT from Last 3 Months or Most Recently Relevant to Health Maintenance Results * EMPLOYEE RELATIONS REPRESENTATIVE THIN PREP PAP SCREEN IMAGED (10/05/2022 3:15 PM CDT) Case Report Gynecologic Cytology Report Case: [id number] Authorizing Provider: Sid Rodriguez PA-C Collected: 10/05/2022 1515 Ordering Location: [facility] Received: 10/08/2022 1203 First Screen: Amparo Maria Rescreen: Erica Solis Specimen: EMPLOYEE RELATIONS REPRESENTATIVE ThinPrep Vial Screening, Cervical/Vaginal 11/18/2022 2:54 PM [facility]T [facility] INTERPRETATION/ RESULT NEGATIVE FOR INTRAEPITHELIAL LESION OR MALIGNANCY (NIL) (none) 11/18/2022 2:54 PM CDT [facility] [employer] LABORATORY-C ENTRAL LABORATORY at 1454 CDT SPECIMEN ADEQUACY Satisfactory for evaluation Endocervical component present 11/18/2022 2:54 PM CDT [facility] EN[facility] LABOR[facility] HPV REQUEST HPV not requested 2022 2:54 PM CDT [facility] EN[facility] LAB[facility] Date of LMP 09/20/2022 11/18/2022 2:54 PM CDT [facility] EN[facility] LABOR[facility] Last Pap Result 2:54 PM CDT [facility] Comment:NA Abnormal Pap or Raymond Bx in last 5 years No 11/18/2022 2:54 PM CDT [facility] Raymond Bx Done Today No 11/18/2022 2:54 PM CDT [facility] Additional Information 11/18/2022 2:54 PM CDT [facility] EN[facility]AL LABORATORY Comment: Interpreted at [facility] - [address], [place] [address] Automated Review Successful 11/18/2022 2:54 PM CDT [facility] Comment:Specimen processed s uccessfully by automated piece dyeing machine tender device, ThinPrep Imaging System, [employer] Note The pap test is a screening technique, not a diagnostic procedure. It is used primarily to screen for squamous cancers and precursor lesions. Published studies have shown that it is subject to both false negative and false positive results. The pap test should not be used as the sole means to diagnose or exclude pre-malignant and malignant lesions. 11/18/2022 2:[address] [facility] Other (Cervical/Vagina l) 10/05/2022 3:15 PM CDT 10/08/2022 12:03 PM CDT us Sid Rodriguez PA-C PATHOLOGY/CYTOLOGY Final [facility]u lt [facility] [address] [place] [address], [place] from Last 3 Months or Most Recently Relevant to Health Maintenance Insurance CIG[employer] C[employer] Care Teams Sports Book Board Attendant Relationship Specialty Start Date End Date Sid Rodriguez PA-C [address] [place] [address] PCP - General Physician Federal Judge 02/09/21
--- OUTSIDE RECORDS SUMMARY | 2025-01-19 19:08 | XMS_ITS | Encounter Summary ---
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 Gender Identity Not on file Sexual Orientation Not on file documented as of this encounter Plan of Treatment Upcoming Encounters Date Type Department Care Team (Late Contact Info) Description 01/30/2025 8:00 AM CDT Office Visit [facility] [address] [place] [address] Juanjo Palomino MD [address] [place] [address] documented as of this encounter Visit Diagnoses Not on filedocumented in this encounter Care Teams Software Applications Specialist Relationship Specialty Start Date End Date [facility]- [address] [place] [address] PCP - General 12/28/24 Juanjo Palomino MD [address] [place] [address] textile conversion manager 12/28/24 documented as of this encounter
--- OUTSIDE RECORDS SUMMARY | 2025-01-19 19:08 | XMS_ITS | Clinical Summary ---
Author Organization [place] Address [address] [place] [address] Care Team Providers Care Business Process Analyst Name Role Phone [facility]- Primary Care Provider Juanjo Palomino MD Unavailable [phone] Allergies No known active allergies Medications Vit-Fe Fumarate-FA ( MULTIVITAMIN PLUS IRON) 27-1 MG TABS Take 1 tablet by mouth daily. Active amphetamine-dextr oamphetamine (ADDERALL XR) 20 MG 24 hr capsule Take 20 mg by mouth every morning. Active amphetamine-dextr oamphetamine (ADDERALL) 30 MG tablet Take 30 mg by mouth daily. At 1 PM Active Encounters Date Type Department Care Team Description 01/16/2025 Results Follow-Up [facility] [address] [place] [address] Juanjo Palomino MD Subj: Message about your results 01/15/2025 10:15 AM CDT Lab [facility] [address] [phone] Encounter for supervision of normal first in first trimester 01/15/2025 9:40 AM CDT Ancillary Procedure [facility] [address] [phone] Encounter for supervision of normal first in first trimester 01/15/2025 Travel 01/14/2025 Telephone [facility] [address] [place] [address] Juanjo Palomino MD Care 01/08/2025 11:00 AM CDT Virtual Visit [facility] [address] [place] [address] Encounter for supervision of normal first in first trimester (Primary Dx) from Last 3 Months Immunizations Immunization Administration Dates Next Due Comvax (HIB/HepB) 01/14/2001,04/25/2000,02/26/20 00 DTAP (<7y) 04/03/2001,07/18/2000,04/25/2000 ,02/26/2000 MMR (MMRII) 04/03/2001 Pneumococcal (PCV 7) 01/14/2001,07/27/2000,04/25,02/26/2000 Poliovirus, inactivated (IPV) 09/30/2000, 000,02/26/2000 Family History Medical History Relation Comments Arthritis Father Diabetes Mother Cancer Paternal Grandfather Anxiety Disorder Sister 1 Anxiety Disorder Sister 2 Attention Deficit Disorder Sister 2 Relation Status Comments Father Alive Mother Alive Paternal Grandfather Alive Sister 1 Alive Sister 2 Alive Social History Tobacco Use Types Packs/Day Years [...] on file Legal Sex Female 4:12 AM [employer] COMMISSION[employer] Gender Identity Not on file Sexual Orientation Not on file Last Filed Vital Signs Vital Sign Reading Time Taken Comments Blood Pressure - - Pulse - - Temperature - - Respiratory Rate - - Oxygen Saturation - - Inhaled Oxygen Concentration - - Weight 86.2 kg (190 lb) 01/08/2025 10:59 AM CDT Height 165.1 cm (5' 5) 01/08/2025 10:59 AM CDT Body Mass Index 31.62 01/08/2025 10:59 AM CDT Plan of Treatment Upcoming Encounters Date Type Department Care Team (Late st Contact Info) Description 01/30/2025 8:00 AM CDT Office Visit [facility] [address] [place] [address] Juanjo Palomino MD [address] [place] [address] Health Maintenance Due Date Last Done Comments ADVANCE CARE PLANNING 1999 ANNUAL REVIEW OF HM ORDERS 1999 YEARLY PREVENTIVE VISIT 12/24/2002 MENINGITIS B VACCINE (2 of 2 - Bexsero SCDM 2-dose series) 06/24/2018 12/22/2017 COVID-19 VACCINE (1 - season) 2024 MATERNAL SCREENING DISCUSSION 01/29/2025 INFLUENZA VACCINE (#1) 2025 , 03/26/2011, 03/18/2010, Additional history exists RSV VACCINE (1 - Risk 1-dose series) 07/02/2025 PAP 10/05/2025 10/05/2022 DTAP/TDAP/TD VACCINE (8 - Td or Tdap) 10/05/2032 10/05/2022, 11/23/2011, 11/23/2004, Additional history exists ZOSTER VACCINE (1 of 2) 12/24/2049 HEPATITIS B VACCINE Completed 01/14/2001, 04/25/2000, 02/26/2000 PNEUMOCOCCAL VACCINE: PEDIATRICS (0 to 5 YEARS) AND AT-RISK PATIENTS (6 to 49 YEARS) Aged Out 01/14/2001, 07/27/2000, 04/25/2000, Additional history exists No longer eligible based on patient's age to complete this topic MENINGITIS VACCINE Completed 01/17/2017, 01/06/2015 HPV VACCINE Completed 12/22/2017, 01/04, 01/06/2015 PHQ-2 (once per calendar year) Completed 01/08/2025 HEPATITIS C SCREENING Completed 01/15/2025 HIV SCREENING Completed 01/15/2025 Procedures Procedure Name Priority Date/Time Associated Diagnosis Comments ABO/RH TYPE AND SCREEN Routine 01/15/2025 9:56 AM CDT Encounter for supervision of normal first in first trimester TYPE AND SCREEN, ADULT Routine 01/15/2025 9:56 [...] supervision of normal first in first trimester US OB <14 WEEKS WITH TRANSVAGINAL SINGLE Routine 01/15/2025 9:52 AM CDT Encounter for supervision of normal first in first trimester URINE CULTURE Routine 01/15/2025 9:46 AM CDT Encounter for supervision of normal first in first trimester from Last 3 Months Results * Adult Type and Screen (01/15/2025 9:56 AM CDT) Pathologist [facility] ABO/RH(D) O POS 01/14/2025 7:00 PM CDT BLOOD BANK Antibody Screen Negative Negative 01/14/2025 7:00 PM CDT BLOOD BANK SPECIMEN EXPIRATION DATE 01/18/2025 11:59:00 PM CDT 01/14/2025 7:00 PM CDT BLOOD BANK Blood BLOOD SPECIMEN / Unknown Venipuncture / Unknown 01/15/2025 9:56 AM CDT 01/15/2025 9:56 AM CDT Juanjo Palomino MD LAB - BLOOD BANK TEST ORDER Final Result BLOOD BANK [address] [place] [phone] * Rubella Antibody IgG (01/15/2025 9:56 AM CDT) [facility] Rubella Eve IgG Instrument Value 0.70 <0.90 Index 01/15/2025 5:16 PM CDT SPECIALTY CORE/PROT/EN DO Rubella Antibody IgG No detectable antibody. 01/15/2025 5:16 PM CDT SPECIALTY LABS Blood BLOOD SPECIMEN / Unknown Venipuncture / Unknown 01/15/2025 9:56 AM CDT 01/15/2025 9:56 AM CDT Juanjo Palomino MD LAB - BLOOD ORDERABLES Final Result UM SPECIALTY CORE/PROT/ENDO UM Specialty Core/Prot/Endo [address] [facility] [address], [address] [place] [address], [facility] UM SPECIALTY LABS UM Specialty Lab [address] [facility] [address], [address] [place] [address], [facility] * HIV Antigen Antibody Combo (01/15/2025 9:56 AM CDT) [facility] HIV Antigen Antibody Combo Nonreactive Nonreactive 01/15/2025 6:29 PM CDT [facility]U LABORATORY Comment:Negative HIV-1 p24 a ntigen and [...] LAB - BLOOD ORDERABLES Final Result LABORATORY [facility] [place] [facility] [address] [facility], [address] [phone] * Treponema Abs w Reflex to RPR and Titer (01/15/2025 9:56 AM CDT) Treponema Antibody Total Nonreactive Nonreactive 01/15/2025 5:20 PM CDT SPECIALTY LABS Blood BLOOD SPECIMEN / Unknown Venipuncture / Unknown 01/15/2025 9:56 AM CDT 01/15/2025 9:56 AM CDT Juanjo Palomino MD LAB - BLOOD ORDERABLES Final Result SPECIALTY CORE/PROT/ENDO Specialty Core/Prot/Endo [address] [facility], [address] [address], [facility] SPECIALTY LABS Specialty Lab [address] [facility], [address] [phone], [facility] * Hepatitis C antibody (01/15/2025 9:56 AM CDT) Hepatitis C Antibody Nonreactive Nonreactive 01/15/2025 7:08 [...] LAB - BLOOD ORDERABLES Final Result LABORATORY [facility] [place] [facility] [address] [facility], [address] [phone] * Hepatitis B surface antigen (01/15/2025 9:56 AM CDT) Pathologist [facility] Hepatitis B Surface Antigen Nonreactive Nonreactive 01/15/2025 7:08 PM CDT LABORATORY Comment: Assay performance characteristics have not been established for testing of newborns. Blood BLOOD SPECIMEN / Unknown Venipuncture / Unknown 01/15/2025 9:56 AM CDT 01/15/2025 9:56 AM CDT Juanjo Palomino MD LAB - BLOOD ORDERABLES Final Result LABORATORY [facility] [place] [facility] Lab [address] [facility], [address] [phone] * Hemoglobin A1c (01/15/2025 9:56 AM CDT) Pathologist [facility] Estimated Average Glucose 105 <117 mg/dL 01/15/2025 10:05 AM CDT LABORATORY Hemoglobin A1C 5.3 0.0 - 5.6 % 01/15/2025 10:05 AM CDT OX LABORATORY Comment: Normal <5.7% Prediabetes 5.7-6.4% Diabetes 6.5% or higher Note: Adopted from ADA consensus guidelines. Blood BLOOD SPECIMEN / Unknown Venipuncture / Unknown 01/15/2025 9:56 AM CDT 01/15/2025 9:56 AM CDT Juanjo Palomino MD LAB - BLOOD ORDERABLES Final Result OX LABORATORY [facility] Lab [address] [place] [address] Lab (no room number, 1st floor of clinic) [place] [address], [facility] * CBC with platelets (01/15/2025 9:56 AM CDT) [facility] WBC Count 7.8 4.0 - 11.0 10e3/uL [...] - BLOOD ORDERABLES Final Result OX LABORATORY [facility] Lab [address] [place] [address] Lab (no room number, 1st floor of clinic) [place] [address], [facility] * US OB <14 Weeks w [...] 48-72 hours. Narrative 01/15/2025 8:[address] [facility] ULTRASOUND - OB < 14 Weeks- Transabdominal [...] OR DERABLES Final Result UU IDD LABORATORY [facility] Inf. Diseases Diag. Lab [address] [facility] [place] [address], [facility] from Last [address] [place] [address] [place] [address] [facility] [employer] Care Teams Business Process Analyst Relationship Specialty Start Date End Date [facility]- [address] [place] [address] PCP - General 12/28/24 Juanjo Palomino MD [address] [place] [address] real estate financial analyst 12/28/24
[2025-01-19 19:12] VITALS: BP 131/78; PULSE 90; RESP 18; TEMP 36.2; O2SAT 99; BMI 32.1
--- NOTE | 2025-01-19 19:17 | ED_ITS ---
HPI - General Time Seen by Provider: 19:17 Date Seen: 01/19/25 Chief complaint: Vaginal Bleeding Stated complaint: 8 weeks preg- large clots Time Seen by Provider: 01/19/25 19:08 Source: patient and RN notes reviewed Mode of arrival: ambulatory Limitations: no limitations History of Present Illness HPI Narrative: This 24-year-old female is coming into the ER with first-trimester passing clots. She starting to pass larger clots, is feeling cramping. She has had some spotting and bleeding. She initially started with [facility] and had initial labs there. She started spotting and bleeding, had an ultrasound there, she states she had heart tones on it but no one called her with the ultrasound report. She states she did not get any blood work or hCG level, contacted our OB department and she had hCG levels done on January 17 and January 18. Her hCG result on January 16 was 7477.7 an on January 18 was 8690.5. She is still feeling breast tenderness, has had no nausea or morning sickness this . She rigidly started with just some blood within mucus and now she is getting about quarter size or larger clots that are starting tonight. Her due date from her LMP is 08/27/2025. Related Data Home Medications ?Medication ?Instructions ?Recorded ?Confirmed vitamins no.167-folic tab PO 12/20/24 5 acid 400 mcg-dha 25 mg chewable tablet (One-A-Day ) Previous Rx's ?Medication ?Instructions ?Recorded dextroamphetamine-amphetamine 30 30 mg PO QDAY #30 tab s 12/20/24 mg tablet (Adderall) dextroamphetamine-amphetamine ER 20 mg PO QAM #30 caps 12/20/24 20 mg 24hr capsule,extend release (Adderall XR) Allergies Allergy/AdvReac Type Severity Reaction Status Date / Time No Known Drug Allergies Allergy Verified 12/20/24 15:05 Review of Systems Status of ROS: Reports: 6 or more systems reviewed and unremarkable except as noted in History and below [facility] Medical History PARAMJIT (generalized anxiety disorder) ?F41.1 - Generalized anxiety disorder (ICD-10) OCD (obsessive compulsive disorder) ?F42.9 - Obsessive-compulsive disorder, unspecified (ICD-10) ADHD ?F90.9 - Attention-deficit hyperactivity disorder, unspecified type (ICD-10) Difficulty concentrating ?R41.840 - Attention and concentration deficit (ICD-10) Bronchitis ?J40 - Bronchitis, not specified as acute or chronic (ICD-10) SOB (shortness of breath) ?R06.02 - Shortness of breath (ICD-10) Cough ?R05.9 - Cough, unspecified (ICD-10) Surgical History Status post left foot surgery (02/02/17) ?Z98.890 - Other specified postprocedural states (ICD-10) Status post surgical manipulation of ankle joint ?Z98.890 - Other specified postprocedural states (ICD-10) Family History Father Rheumatoid arteritis Social History Smoking Status: Never smoker Do you use any of these nicotine containing products: None Second hand tobacco smoke exposure: No How often do you have a drink containing alcohol: never How often do you have six or more drinks on one occasion: Never AUDIT-C Alcohol total score: 0 Non-prescribed substance use: denies use service: No Exam Const: Vital Signs, click to edit/add: Vital Signs - 24 hr 01/19/25 19:12 Temperature 97.2 F L Pulse Rate [Pulse Oximeter] 90 Respiratory Rate 18 Blood Pressure [Le ft Upper Arm] 131/78 Pulse Oximetry 99 Oxygen Delivery Me thod Room Air This 24-year-old female is alert, interactive, tearful and obviously anxious. Speech is otherwise normal, face atraumatic. Lungs are clear, good air entry, no wheezing or crackles, no tachypnea. CV regular rate and rhythm, no murmur, normal S1-S2, S3-S4. Abdomen is soft, nontender, nondistended, cannot feel any organomegaly, no rebound or guarding, no masses. Patient was ambulatory into the ED of her own accord. Pelvic/bimanual exam deferred at this point. Documenting provider has reviewed patient's vital signs: yes Course Course ED Course: Patient will get a repeat ultrasound here. Did review with her that this certainly can be other causes of bleeding like subchorionic hemorrhage. With her having a heartbeat on the recent ultrasound, prognostic Jenna that is hopefully reassuring. Will repeat her CBC. We will also repeat her quantitative hCG. Her blood type is O positive with negative antibody screen from her outside records. Reevaluation(s) Time of Reevaluation #1: 20:30 Reevaluation #1: Have reviewed with patient that there are no heart tones seen on the ultrasound, gestational sac is moved down towards the cervix. Her hCG is unfortunately diminishing as well. We spent time discussing miscarriage, expectations for probable bleeding that would be towards have very heavy menstrual cycle. She might expect increased cramps. We discussed signs and symptoms of return. She does have an appointment in clinic on Tuesday, she should keep this. We reviewed that hopefully she still early enough that she would not require any intervention like a D&C but did review when this might be considered. At this time she is stable to discharge to home. Her blood type is O-positive. Condolences given. Vital Signs Vital signs: Initial Vital Signs Temperature 97.2 F L 01/19/25 19:12 Temperature Source Temporal Artery Scan 01/19/25 19:12 Pulse Rate 90 01/19/25 19:12 Pulse Rhythm Regular 01/19/25 19:12 Respiratory Rate 18 01/19/25 19:12 Blood Pressure 131/78 01/19/25 19:12 Blood Pressure Mean 95 01/19/25 19:12 Blood Pressure Position Supine 01/19/25 19:12 Pulse Oximetry 99 01/19/25 19:12 Oxygen Delivery Method Room Air 01/19/25 19:12 Vital Signs Temperature 97.2 F L 01/19/25 19:12 Pulse Rate 90 01/19/25 19:12 Respiratory Rate 18 01/19/25 19:12 Blood Pressure 131/78 01/19/25 19:12 Pulse Oximetry 99 01/19/25 19:12 Oxygen Delivery Method Room Air 01/19/25 19:12 Temperature 97.2 F L 01/19/25 19:12 Pulse Rate 90 01/19/25 19:12 Respiratory Rate 18 01/19/25 19:12 Blood Pressure 131/78 01/19/25 19:12 Pulse Oximetry 99 01/19/25 19:12 Oxygen Delivery Method Room Air 01/19/25 19:12 MDM - OB/Uterine Contractions Lab Data Attestation: I reviewed the patient's lab results. Labs: Lab Results 01/19/25 Range/Units 19:27 WBC 11.63 H (4.50-11.00) K/uL RBC 4.61 (4.00-5.20) m/uL Hgb 12.9 (12.0-16.0) gm/dL Hct 38.0 (33.0-51.0) % MCV 82 (80-100) fL MCH 28 (26-34) pg MCHC 34 (32-36) gm/dL RDW Coeff of Thalia 11.7 (11.5-15.5) % Plt Count 252 (140-440) K/uL Neut % (Auto) 68.3 (42.0-72.0) % Lymph % (Auto) 22.9 (20-44) % [place] % (Auto) 7.1 (0.0-11.0) % Eos % (Auto) 1.2 (0.0-7.0) % Baso % (Auto) 0.4 (0.0-3.0) % Neut # (Auto) 7.90 H (1.7-7.0) K/uL Lymph # (Auto) 2.70 (0.90-2.90) K/uL [place] # (Auto) 0.80 (0.00-0.90) K/UL Eos # (Auto) 0.10 (0.00-0.50) K/uL Baso # (Auto) 0.00 (0.00-0.30) K/uL Abs Immat Gran (auto) 0.00 (0.00-0.30) K/uL Imm/Tot Granulo (auto) 0.1 % HCG, Quant 2964.00 mIU/mL Imaging Data US OB limited: Attestation: I have reviewed the pertinent imaging results. Radiologist's impression: Patient: DHEERAJ REYES Facility:?[facility] Patient ID:?[id number] Site Patient ID:?[id number]. Site :?[id number] Study:?US-OB Pelvis TV-01/19/2025 8:33:01 PM Ordering Physician:?Vale Lind Final Report: INDICATION: Bleeding COMPARISON: None. TECHNIQUE: Real-time young-scale imaging of the pelvis was performed transvaginal. FINDINGS: Intrauterine gestational sac is present in the lower uterine segment. pole measures 1.8 cm, 8 weeks 2 days. No heart tones. Small subchorionic hemorrhage. Corpus luteal cyst left ovary. No yolk sac. IMPRESSION: Nonviable intrauterine gestation located in the lower uterine segment. Dictated by Ace Love MD @ 01/19/2025 8:56:51 PM (Electronic Signature) Discharge Plan Discharge Clinical Impression: Incomplete miscarriage Patient Disposition: Home, Self-Care Condition: Stable Instructions: Miscarriage (ED) Additional Instructions: Anticipate increased bleeding like a heavy menstrual cycle, may have some have your cramps with this. You certainly are able to use Tylenol and ibuprofen per bottle directions at this time. Keep your appointment for the OB clinic on Tuesday for follow-up, it is important for them to see you. If your bleeding is becoming heavy as we discussed or your becoming symptomatic from excessive bleeding, please seek re-evaluation. Likewise, if you develop fever and inc reasing abdominal pain through this, we do need to see you in re-evaluation. Activity Level: Activity as Tolerated Prescriptions: No Action One-A-Day 400 mcg- 25 mg tablet,chewable PO dextroamphetamine-amphetamine [Adderall XR] 20 mg capsule,extended release 24hr 20 mg PO QAM Qty: 30 0RF dextroamphetamine-amphetamine [Adderall] 30 mg tablet 30 mg PO QDAY Qty: 30 0RF Rx Instructions: take at 1 pm Follow Up/Referrals: Kaykay Roa, [employer] ATTENDANT [Primary Care Provider, Family Practice] Stand Alone Forms: [employer] Info Instructions
--- NOTE | 2025-01-19 19:17 | CRLHL7_ITS ---
For Patients: As a result of the Century Cures Act, medical imaging exams and procedure reports are released immediately into your electronic medical record. You may view this report before your referring provider. If you have questions, please contact your health care provider. INDICATION: Bleeding COMPARISON: None. TECHNIQUE: Real-time young-scale imaging of the pelvis was performed transvaginal. FINDINGS: Intrauterine gestational sac is present in the lower uterine segment. pole measures 1.8 cm, 8 weeks 2 days. No heart tones. Small subchorionic hemorrhage. Corpus luteal cyst left ovary. No yolk sac. IMPRESSION: Nonviable intrauterine gestation located in the lower uterine segment. Dictated by Ace Love MD @ 01/19/2025 8:56:51 PM (Electronically Signed)
[2025-01-19 19:46] LABS: Hematocrit 38.0 % (33.0-51.0); Hemoglobin* 12.9 gm/dL (12.0-16.0); Immature Granulocytes Abs Auto 0.00 K/uL (0.00-0.30); Immature Granulocytes Pct Auto 0.1 %; Lymphocytes Absolute Auto 2.70 K/uL (0.90-2.90); Mean Corpuscular HGB Conc 34 gm/dL (32-36); Mean Corpuscular Hemoglobin 28 pg (26-34); Mean Corpuscular Volume 82 fL (80-100); RDW Coefficient of Variation % 11.7 % (11.5-15.5); Red Blood Count 4.61 m/uL (4.00-5.20); White Blood Count* 11.63 K/uL (4.50-11.00)
[2025-01-19 19:49] LABS: Slide Review Reflex No
[2025-01-19 20:17] LABS: HCG Quantitative* 2964.00 mIU/mL
== END 2025-01-19 20:54 | disposition home or self-care (01) ==
PROVIDERS: Emergency Provider Family Medicine; PCP Nurse Practitioner Family
DX: O03.4 Incomplete spontaneous abortion without complication (principal)
CPT/HCPCS: 36415; 76817; 84702; 85025; 99283; 99284

== ENCOUNTER 2025-03-20 08:23 | Outpatient (CLI) | payer OTHER, SELFPAY | END 2025-03-20 08:24 | disposition home or self-care (01) | LOC: FRMREF 08:25 | PROVIDERS: PCP Nurse Practitioner Family; Visit Provider Physician Assistant Medical | DX: R10.84 Generalized abdominal pain (principal) | CPT/HCPCS: 84702; 87086 ==

== ENCOUNTER 2025-05-20 15:47 | Outpatient (CLI) | payer OTHER, SELFPAY ==
--- NOTE | 2025-05-20 16:00 | CRLHL7_ITS ---
For Patients: As a result of the Cures Act, medical imaging exams and procedure reports are released immediately into your electronic medical record. You may view this report before your referring provider. If you have questions, please contact your health care provider. OBSTETRICAL ULTRASOUND TRANSVAGINAL CLINICAL INDICATION: Dating and viability. LMP: 03/14/2025 CHRIS by LMP: 12/19/2025 Gestational age: 9 weeks 4 days PREVIOUS ULTRASOUND: No TECHNIQUE: Real-time young-scale imaging of the fetus was performed transvaginal. Transvaginal imaging was performed for better visualization of the endometrium and ovaries. FINDINGS: CRL: 3.0 cm, 9 weeks 6 days; CHRIS 12/17/2025 heart rate: 161 BPM Gestational sac: 4.1 cm, appears within normal limits Yolk sac: 3.6 mm, appears within normal limits Right ovary: 2.9 x 2.0 x 2.2 cm, CL Left ovary: 2.6 x 1.2 x 1.5 cm COMMENT: Corpus luteum in right ovary measuring 1.9 x 1.4 x 1.4 cm. IMPRESSION: Single living intrauterine measures 9 weeks 6 days with sonographic due date of 12/17/2025. ACE LEIGH M.D. Diagnostic Radiologist [email or web address] Transcribed: 6:[address]/Dictated by: Ace Leigh MD @ 05/20/2025 4:53:00 PM (Electronically Signed)
== END 2025-05-20 15:48 | disposition home or self-care (01) ==
LOC: US 15:49
PROVIDERS: PCP Nurse Practitioner Family; Visit Provider Physician Assistant
DX: O34.81 Maternal care for other abnormalities of pelvic organs, first trimester (principal); N83.11 Corpus luteum cyst of right ovary; Z3A.09 9 weeks gestation of pregnancy; Z34.91 Encounter for supervision of normal pregnancy, unspecified, first trimester
CPT/HCPCS: 76817

== ENCOUNTER 2025-05-20 16:52 | Outpatient (CLI) | payer OTHER, SELFPAY ==
[2025-05-20 20:32] LABS: Chlamydia DNA Amplified* NOT DETECTED (No Detected); GC DNA Amplified* NOT DETECTED (No Detected)
== END 2025-05-20 16:53 | disposition home or self-care (01) ==
PROVIDERS: PCP Nurse Practitioner Family; Visit Provider Physician Assistant
DX: Z34.91 Encounter for supervision of normal pregnancy, unspecified, first trimester (principal); Z3A.09 9 weeks gestation of pregnancy
CPT/HCPCS: 83020; 83021; 85660; 86703; 86706; 86762; 86780; 86803; 86850; 86900; 86901; 87086; 87340; 87491; 87591